=== PATIENT | male | born 1955 | race Native Hawaiian/Other Pacific Islander ===

== ENCOUNTER 2017-05-01 11:12 | Outpatient (CLI) | payer OTHER | END 2017-05-01 21:41 | disposition home or self-care (01) | LOC: LABW 11:12 | DX: I10 Essential (primary) hypertension (principal); R53.1 Weakness; R53.83 Other fatigue | CPT/HCPCS: 93005 ==

== ENCOUNTER 2017-06-04 23:08 | Observation (INO) | payer OTHER ==
[~2017-06-04] VITALS: Ht 160 cm; Wt 84.0 kg
[2017-06-04 23:50] LABS: PLATELET COUNT 270 K/uL (142-355)
[2017-06-04 23:57] LABS: POTASSIUM 3.5 mmol/L (3.6-5.2)
[2017-06-05] VITALS (8 sets, daily range): BP systolic 104–144; BP diastolic 60–90; TEMP 98–99.7; Ht 160 cm; Wt 84.0 kg
[2017-06-05] MEDS ORDERED: CYCL10TA35 PO (00:49)
[2017-06-05] MEDS ORDERED: FUROSEMIDE20 MG PO (00:49)
[2017-06-05] MEDS ORDERED: COLCHICINE0.6 M1 PO (00:50)
[2017-06-05] MEDS ORDERED: ACID REDUCER150 M1 PO (00:50)
[2017-06-05] MEDS ORDERED: PREDNISONE20 MG PO (00:51)
[2017-06-05] MEDS ORDERED: VALSARTAN80 MG PO (00:52)
[2017-06-05] MEDS ORDERED: METO25TA4 PO (00:54)
[2017-06-05] MEDS ORDERED: [UNRECOGNIZED DRUG - CODE] PO (00:55)
[2017-06-05 05:19] LABS: PLATELET COUNT 167 K/uL (142-355)
[2017-06-06 04:00] VITALS: BP 115/71; TEMP 98.3
[2017-06-06 05:01] LABS: PLATELET COUNT 129 K/uL (142-355)
[2017-06-06 05:07] LABS: SODIUM 137 mmol/L (136-145)
[2017-06-06 20:00] VITALS: BP 148/81; TEMP 98.8
[2017-06-07] VITALS: BP 134/68; TEMP 98.2
[2017-06-07 04:00] VITALS: BP 114/66; TEMP 98.7
[2017-06-07 08:00] VITALS: BP 122/71; TEMP 98.4
== END 2017-06-07 10:00 | disposition home or self-care (01) ==
LOC: ED 23:08 → MED/SURG 06-05 02:00
PROVIDERS: Family Medicine
DX: K52.89 Other specified noninfective gastroenteritis and colitis (principal); R11.2 Nausea with vomiting, unspecified; R07.89 Other chest pain; K76.0 Fatty (change of) liver, not elsewhere classified; E66.8 Other obesity; A04.5 Campylobacter enteritis
CPT/HCPCS: 36415; 80053; 82140; 82150; 82272; 82550; 83605; 83690; 83735; 84100; 84484; 85027; 85610; 85730; 87015; 87045; 87328; 87329; 87899; 93005; 96361; 96365; 96366; 96367; 96372; 96374; 96375; 99220; 99284; G0378; J0744; J1650; J2270; J2405; J3411; J3490; Q9963

== ENCOUNTER 2017-11-27 16:02 | Outpatient (CLI) | payer OTHER ==
[~2017-11-27 16:02] MED LIST: ACID REDUCER150 M1 PO; COLCHICINE0.6 M1 PO; CYCL10TA35 PO; FUROSEMIDE20 MG PO; METO25TA4 PO; PREDNISONE20 MG PO; VALSARTAN80 MG PO; [UNRECOGNIZED DRUG - CODE] PO
== END 2017-11-27 19:15 | disposition home or self-care (01) ==
LOC: LABW 16:02
DX: K76.0 Fatty (change of) liver, not elsewhere classified (principal)
CPT/HCPCS: 36415; 80076

== ENCOUNTER 2017-12-31 06:45 | Outpatient (CLI) | payer OTHER ==
[2017-12-31 07:58] LABS: POTASSIUM 3.6 mmol/L (3.6-5.2)
== END 2017-12-31 21:01 | disposition home or self-care (01) ==
LOC: LABW 06:45
PROVIDERS: Family Medicine
DX: K76.9 Liver disease, unspecified (principal)
CPT/HCPCS: 36415; 80053; 83735; 84100; 84550

== ENCOUNTER 2018-02-28 10:11 | Emergency (ER) | payer OTHER ==
[~2018-02-28] VITALS: Ht 160 cm; Wt 81.6 kg
[2018-02-28 10:15] VITALS: TEMP 97.8
[2018-02-28 11:30] VITALS: BP 118/80
== END 2018-02-28 11:35 | disposition home or self-care (01) ==
LOC: ED 10:11
DX: S92.354A Nondisplaced fracture of fifth metatarsal bone, right foot, initial encounter for closed fracture (principal); M10.9 Gout, unspecified; X50.1XXA Overexertion from prolonged static or awkward postures, initial encounter; Y92.410 Unspecified street and highway as the place of occurrence of the external cause
CPT/HCPCS: 84550; 99283

== ENCOUNTER 2019-08-04 11:34 | Outpatient (CLI) | payer OTHER | END 2019-08-04 23:07 | disposition home or self-care (01) | LOC: LABW 11:34 | DX: E55.9 Vitamin D deficiency, unspecified (principal) | CPT/HCPCS: 36415; 82306 ==

== ENCOUNTER 2019-11-21 11:55 | Outpatient (CLI) | payer OTHER | END 2019-11-21 19:35 | disposition home or self-care (01) | LOC: LABW 11:55 | DX: E55.9 Vitamin D deficiency, unspecified (principal) | CPT/HCPCS: 82306 ==

== ENCOUNTER 2021-06-05 06:36 | Emergency (ER) | payer OTHER ==
[~2021-06-05] VITALS: Ht 160 cm; Wt 81.6 kg
[2021-06-05 06:40] VITALS: TEMP 98.1
[2021-06-05 07:24] LABS: PLATELET COUNT 158 K/uL (142-355)
[2021-06-05 07:30] LABS: POTASSIUM 3.4 mmol/L (3.6-5.2)
[2021-06-05 07:36] LABS: PARTIAL THROMBOPLASTIN TIME 22.1 SECONDS (24.5-33.6)
[2021-06-05 10:23] VITALS: BP 148/84
== END 2021-06-05 10:26 | disposition home or self-care (01) ==
LOC: ED 06:36
PROVIDERS: Emergency Medicine
DX: J18.9 Pneumonia, unspecified organism (principal); U07.1 COVID-19; R94.5 Abnormal results of liver function studies
CPT/HCPCS: 80053; 82550; 83880; 84484; 85007; 85027; 85379; 85610; 85730; 87635; 96360; 96365; 96375; 99284; J1956; J2405; Q9963; U0003

== ENCOUNTER 2022-09-29 08:11 | Emergency (ER) | payer OTHER ==
[~2022-09-29] VITALS: Ht 160 cm; Wt 82.6 kg
[2022-09-29 08:18] VITALS: TEMP 98.9
[2022-09-29 10:13] VITALS: BP 160/96
== END 2022-09-29 10:13 | disposition home or self-care (01) ==
LOC: ED 08:11
DX: N44.2 Benign cyst of testis (principal); N50.812 Left testicular pain
CPT/HCPCS: 81000; 96372; 99283; J1885